=== PATIENT | female | born 1990 | race African-American/Black ===

== ENCOUNTER 2024-12-25 09:06 | Emergency (ER) | payer OTHER ==
[~2024-12-25] VITALS: Ht 157.5 cm; Wt 80.0 kg
[2024-12-25 09:31] LABS: COVID AG,FIA SOURCE NASAL SWAB
[2024-12-25 10:14] LABS: INFLUENZA TYPE A NEGATIVE FOR TYPE A (NEGATIVE); INFLUENZA TYPE B NEGATIVE FOR TYPE B (NEGATIVE); SARS-COV2 (COVID) ANTIGEN,FIA Negative (Negative)
[2024-12-25 10:18] LABS: RAPID GROUP A STREP NEGATIVE (NEGATIVE)
[2024-12-25] MEDS: IBUPROFEN 600 MG TABLET PO ONE (11:23)
[2024-12-25 12:56] VITALS: TEMP 97.7
[2024-12-25] MEDS ORDERED: IBUP-1492 PO (13:33)
[2024-12-25] MEDS: ACETAMINOPHEN 325 MG TABLET PO ONE (13:34)
[2024-12-25 13:51] VITALS: BP 117/70; PULSE 102; RESP 18; O2SAT 98
== END 2024-12-25 14:45 | disposition home or self-care (01) ==
LOC: EMS 09:10
DX: J06.9 Acute upper respiratory infection, unspecified (principal); B34.8 Other viral infections of unspecified site; Z98.890 Other specified postprocedural states; Z20.822 Contact with and (suspected) exposure to COVID-19
CPT/HCPCS: 87430; 87804; 99285; Z7502; Z7610